=== PATIENT | female | born 1945 | race Caucasian/White ===

== ENCOUNTER → 2016-12-08 | Outpatient (REF) | payer MEDICARE, OTHER ==
[2016-12-08 17:59] LABS: ALBUMIN 3.6 GM/DL (3.2-5.2); ALBUMIN/GLOBULIN RATIO 1.16 (1.00-1.93); ALKALINE PHOSPHATASE 92 U/L (45-117); ALT/SGPT 183 U/L (12-78); ANION GAP 10 MEQ/L (8-16); AST/SGOT 123 U/L (15-37); BILIRUBIN,TOTAL 0.9 MG/DL (0.2-1.0); BLOOD UREA NITROGEN 20 MG/DL (7-18); CALCIUM LEVEL 9.1 MG/DL (8.8-10.2); CARBON DIOXIDE LEVEL 27 MEQ/L (21-32); CHLORIDE LEVEL 107 MEQ/L (98-107); CHOLESTEROL LEVEL 224 MG/DL (<200); CREATININE FOR GFR 0.95 MG/DL (0.55-1.02); GLOMERULAR FILTRATION RATE > 60.0 (>39); GLUCOSE, FASTING 112 MG/DL (83-110); POTASSIUM SERUM 3.5 MEQ/L (3.5-5.1); SODIUM LEVEL 144 MEQ/L (136-145); TOTAL PROTEIN 6.7 GM/DL (6.4-8.2); TRIGLYCERIDES LEVEL 89 MG/DL (<150)
== END ==
LOC: M SFHCCLAY 10:34
PROVIDERS: ATTEND Family Medicine
DX: R73.01 Impaired fasting glucose (principal); Z13.220 Encounter for screening for lipoid disorders; K21.9 Gastro-esophageal reflux disease without esophagitis; J30.9 Allergic rhinitis, unspecified; M19.90 Unspecified osteoarthritis, unspecified site; M70.62 Trochanteric bursitis, left hip; M70.61 Trochanteric bursitis, right hip; Z79.82 Long term (current) use of aspirin; Z79.899 Other long term (current) drug therapy
CPT/HCPCS: 80053; 80061; 83036; G0463

== ENCOUNTER → 2017-08-04 | Outpatient (REF) | payer MEDICARE, OTHER | LOC: M LAB REF 15:29 | DX: L08.9 Local infection of the skin and subcutaneous tissue, unspecified (principal) | CPT/HCPCS: 87070 ==

== ENCOUNTER → 2018-03-18 | Outpatient (REF) | payer MEDICARE, OTHER ==
[2018-03-18 18:44] LABS: BASO # 0.1 10^3/uL (0.0-0.2); BASO % 0.9 % (0.0-1.0); EOS # 0.3 10^3/uL (0.0-0.50); EOS % 5.2 % (0.0-3.0); HEMOGLOBIN 13.4 g/dl (12.0-15.5); IMMATURE GRANULOCYTE % 0.2 % (0-3.0); LYMPH # 1.3 10^3/uL (1.5-4.5); LYMPH % 22.2 % (24.0-44.0); MEAN CORPUSCULAR HEMOGLOBIN 29.5 pg (27.0-33.0); MEAN CORPUSCULAR HGB CONC 32.7 g/dl (32.0-36.5); MEAN CORPUSCULAR VOLUME 90.1 fl (80.0-96.0); MONO # 0.5 10^3/uL (0.0-0.8); MONO % 9.6 % (0.0-5.0); NEUTROPHILS # 3.5 10^3/uL (1.8-7.7); NEUTROPHILS % 61.9 % (36.0-66.0); RED BLOOD COUNT 4.55 10^6/uL (4.00-5.40); RED CELL DISTRIBUTION WIDTH 12.8 % (11.5-14.5); WHITE BLOOD COUNT 5.6 10^3/uL (4.0-10.0)
[2018-03-18 18:48] LABS: ALBUMIN 3.5 GM/DL (3.2-5.2); ALBUMIN/GLOBULIN RATIO 1.13 (1.00-1.93); ALKALINE PHOSPHATASE 79 U/L (45-117); ALT/SGPT 41 U/L (12-78); ANION GAP 7 MEQ/L (8-16); AST/SGOT 33 U/L (7-37); BILIRUBIN,TOTAL 1.1 MG/DL (0.2-1.0); BLOOD UREA NITROGEN 16 MG/DL (7-18); C REACTIVE PROTEIN QUANTITATIV < 0.30 MG/DL (0.00-0.30); CARBON DIOXIDE LEVEL 32 MEQ/L (21-32); CHLORIDE LEVEL 105 MEQ/L (98-107); GLOMERULAR FILTRATION RATE 57.7 (>39); GLUCOSE, FASTING 100 MG/DL (70-100); POTASSIUM SERUM 3.7 MEQ/L (3.5-5.1); RHEUMATOID FACTOR QUANT < 10.0 IU/ML (<15.0); SODIUM LEVEL 144 MEQ/L (136-145); TOTAL PROTEIN 6.6 GM/DL (6.4-8.2)
[2018-03-18 19:21] LABS: POS COUNT POS FLAG
[2018-03-18 19:38] LABS: ERYTHROCYTE SEDIMENTATION RATE 19 mm/hr (0-30)
[2018-03-22 00:30] LABS: SSA SJOGRENS A <0.2 AI (0.0-0.9); SSB SJOGRENS B <0.2 AI (0.0-0.9)
[2018-03-22 00:30] LABS: CYCLIC CITRULLINATED PEPTIDE 6 units (0-19)
== END ==
LOC: M SFHCCLAY 10:58
DX: R68.2 Dry mouth, unspecified (principal); R63.4 Abnormal weight loss
CPT/HCPCS: 84443

== ENCOUNTER → 2018-07-14 | Outpatient (CLI) | payer MEDICARE, OTHER ==
--- NOTE | 2018-07-14 10:23 | REP ---
NUCLEAR GASTRIC EMPTYING SCAN: Following the oral administration of 1.03 mCi technetium 99m sulfur colloid in two scrambled eggs and 2 ounces of water, multiple images of the upper abdomen are performed in the anterior and posterior projections for 90 minutes. At the end of 90 minutes, 25% of the ingested activity has emptied from the stomach. T1/2 is calculated to be 163 minutes. A normal t1/2 is 90 minutes. Therefore, there is delayed gastric emptying. IMPRESSION: Mild to moderately delayed gastric emptying. Electronically Signed by Olayinka Sandhu MD 07/14/2018 11:45 A
== END ==
LOC: M RAD 07:24
PROVIDERS: ATTEND Surgery
DX: K44.9 Diaphragmatic hernia without obstruction or gangrene (principal); K31.84 Gastroparesis; K21.9 Gastro-esophageal reflux disease without esophagitis
CPT/HCPCS: 78264; A9541

== ENCOUNTER → 2018-07-21 | Outpatient (REF) | payer MEDICARE, OTHER ==
[2018-07-21 17:15] LABS: ALBUMIN 3.8 GM/DL (3.2-5.2); ALT/SGPT 29 U/L (12-78); BILIRUBIN,TOTAL 0.6 MG/DL (0.2-1.0); BLOOD UREA NITROGEN 26 MG/DL (7-18); CARBON DIOXIDE LEVEL 31 MEQ/L (21-32); CHLORIDE LEVEL 107 MEQ/L (98-107); CHOLESTEROL LEVEL 210 MG/DL (<200); CHOLESTEROL RISK RATIO 4.038 (<5); CREATININE FOR GFR 0.87 MG/DL (0.55-1.30); GLOMERULAR FILTRATION RATE > 60.0 (>39); GLUCOSE, FASTING 104 MG/DL (70-100); HDL CHOLESTEROL 52 MG/DL (>40); LDL CHOLESTEROL 138 MG/DL (<100); NON-HDL-C 158 MG/DL; POTASSIUM SERUM 3.7 MEQ/L (3.5-5.1); SODIUM LEVEL 143 MEQ/L (136-145); TOTAL PROTEIN 6.6 GM/DL (6.4-8.2); TRIGLYCERIDES LEVEL 100 MG/DL (<150)
[2018-07-21 17:22] LABS: BASO # 0.1 10^3/uL (0.0-0.2); BASO % 0.8 % (0.0-1.0); EOS # 0.2 10^3/uL (0.0-0.50); EOS % 2.9 % (0.0-3.0); LYMPH # 1.8 10^3/uL (1.5-4.5); LYMPH % 27.8 % (24.0-44.0); MEAN CORPUSCULAR HEMOGLOBIN 29.7 pg (27.0-33.0); MEAN CORPUSCULAR HGB CONC 32.5 g/dl (32.0-36.5); MEAN CORPUSCULAR VOLUME 91.5 fl (80.0-96.0); MONO # 0.5 10^3/uL (0.0-0.8); MONO % 8.3 % (0.0-5.0); NEUTROPHILS # 3.9 10^3/uL (1.8-7.7); NEUTROPHILS % 59.7 % (36.0-66.0); RED BLOOD COUNT 4.37 10^6/uL (4.00-5.40); WHITE BLOOD COUNT 6.5 10^3/uL (4.0-10.0)
[2018-07-21 18:20] LABS: PLATELET COUNT, AUTOMATED 74 10^3/uL (150-450)
[2018-07-21 18:22] LABS: HEMOGLOBIN A1c 5.8 %
== END ==
LOC: M SFHCCLAY 08:55
PROVIDERS: ATTEND Family Medicine
DX: Z01.818 Encounter for other preprocedural examination (principal); R73.01 Impaired fasting glucose; Z86.2 Personal history of diseases of the blood and blood-forming organs and certain disorders involving the immune mechanism; Z13.220 Encounter for screening for lipoid disorders
CPT/HCPCS: 80053; 80061; 83036; 85025; 85049; 85055; G0463

== ENCOUNTER → 2018-08-03 | Outpatient (REF) | payer MEDICARE, OTHER ==
[2018-08-05 14:43] LABS: ANTINUCLEAR ANTIBODIES DIRECT Negative (Negative)
== END ==
LOC: M LABDRAWC 17:24
PROVIDERS: ATTEND Nurse Practitioner Family
DX: R53.83 Other fatigue (principal); L65.8 Other specified nonscarring hair loss

== ENCOUNTER → 2018-08-24 | Outpatient (REF) | payer MEDICARE, OTHER ==
[~2018-08-24] MED LIST: ASPI81CH33 PO; CALC600T66 PO; INDA125TA PO; MYRB50TA PO; OMEP40CA2 PO; PANT40TA3 PO; POTA10808 PO; SENN8.6T98 PO; VITAD1000T PO; [UNRECOGNIZED DRUG - CODE] PO; [UNRECOGNIZED DRUG - OTHER] PO
[2018-08-24 17:21] LABS: BASO # 0.1 10^3/uL (0.0-0.2); BASO % 0.7 % (0.0-1.0); EOS # 0.2 10^3/uL (0.0-0.50); EOS % 2.7 % (0.0-3.0); HEMATOCRIT 39.6 % (36.0-47.0); HEMOGLOBIN 13.3 g/dl (12.0-15.5); LYMPH # 1.6 10^3/uL (1.5-4.5); LYMPH % 23.6 % (24.0-44.0); MEAN CORPUSCULAR HEMOGLOBIN 30.4 pg (27.0-33.0); MEAN CORPUSCULAR HGB CONC 33.6 g/dl (32.0-36.5); MEAN CORPUSCULAR VOLUME 90.4 fl (80.0-96.0); MONO # 0.7 10^3/uL (0.0-0.8); MONO % 9.9 % (0.0-5.0); NEUTROPHILS # 4.3 10^3/uL (1.8-7.7); NEUTROPHILS % 62.8 % (36.0-66.0); RED BLOOD COUNT 4.38 10^6/uL (4.00-5.40); WHITE BLOOD COUNT 6.8 10^3/uL (4.0-10.0)
[2018-08-24 17:54] LABS: PLATELET COUNT, AUTOMATED 87 10^3/uL (150-450)
== END ==
LOC: M SFHCCLAY 11:12
PROVIDERS: ATTEND Family Medicine
DX: D69.6 Thrombocytopenia, unspecified (principal)

== ENCOUNTER 2018-08-31 11:59 | Day surgery (SDC) | payer MEDICARE, OTHER ==
[~2018-08-31] VITALS: Ht 167.6 cm; Wt 67.6 kg
[2018-08-31] MEDS: NS 1,000 ML IV ONE (09:30)
[2018-08-31] MEDS ORDERED: PROPOFOL 200 MG/20 ML VIAL As Ordered ONE (13:08)
[2018-08-31] MEDS ORDERED: LIDOCAINE 2% INJ 100 MG/5 ML SDV (FOR ANES.) As Ordered ONE (13:08)
--- NOTE | 2018-08-31 13:21 | ROOR ---
Patient Name: Sarah Patricio Procedure Date: 08/31/2018 12:59 PM Date of : 1945 Age: 73 Room: [facility] Gender: Female Note Status: Finalized Procedure: Upper GI endoscopy Indications: Epigastric abdominal pain, Abnormal UGI series Providers: Hood Hazel MD Referring MD: AVINASH LEE DO Requesting Provider: Medicines: Monitored Anesthesia Care Complications: No immediate complications. Procedure: Pre-Anesthesia Assessment: - The heart rate, respiratory rate, oxygen saturations, blood pressure, adequacy of pulmonary ventilation, and response to care were monitored throughout the procedure. The Endoscope was introduced through the mouth, and advanced to the second part of duodenum. The upper GI endoscopy was accomplished without difficulty. The patient tolerated the procedure well. Findings: The Z-line was regular and was found 39 cm from the incisors. A small paraesophageal hernia was found. The exam was otherwise without abnormality. The exam of the duodenum was otherwise normal. Impression: - Z-line regular, 39 cm from the incisors. - Small paraesophageal hernia. - The examination was otherwise normal. - No specimens collected. - The examination was otherwise normal. Recommendation: - Patient has a contact number available for emergencies. The signs and symptoms of potential delayed complications were discussed with the patient. Return to normal activities tomorrow. Written discharge instructions were provided to the patient. - Discharge patient to home. - Follow an antireflux regimen. - Continue present medications. - Return to referring physician. - The findings and recommendations were discussed with the patient's family. Hood Hazel MD Hood Hazel MD 08/31/2018 1:20:44 PM Electronically signed by Hood Hazel MD Number of Addenda: 0 Note Initiated On: 08/31/2018 12:59 PM Estimated Blood Loss: Estimated blood loss: none.
[2018-08-31 13:30] VITALS: BP 159/63
== END 2018-08-31 13:42 | disposition home or self-care (01) ==
LOC: M OPP 11:59
PROVIDERS: ATTEND Internal Medicine Gastroenterology
DX: R10.13 Epigastric pain (principal); R93.3 Abnormal findings on diagnostic imaging of other parts of digestive tract; K44.9 Diaphragmatic hernia without obstruction or gangrene

== ENCOUNTER → 2018-12-22 | Outpatient (REF) | payer MEDICARE, OTHER ==
[~2018-12-22] MED LIST changes: +CHOL100029 PO; -OMEP40CA2 PO; +OMEP40CA97 PO; -VITAD1000T PO
[2018-12-23 11:53] LABS: THYROID STIMULATING HORMONE 2.55 uIU/ML (0.358-3.740); THYROXINE (T4) 7.9 UG/DL (4.5-12.0)
[2018-12-23 12:17] LABS: TOTAL T3 82.1 NG/DL (60.0-181.0)
== END ==
LOC: M SFHCCLAY 14:23
PROVIDERS: ATTEND Family Medicine
DX: R73.01 Impaired fasting glucose (principal); Z13.29 Encounter for screening for other suspected endocrine disorder; Z79.899 Other long term (current) drug therapy

== ENCOUNTER → 2019-03-13 | Outpatient (CLI) | payer MEDICARE, OTHER ==
--- NOTE | 2019-03-13 14:43 | REP ---
Clinical: Cough . Comparison: None . Technique: PA and lateral. Findings: The mediastinum and cardiac silhouette are normal. The lung shi are clear and without acute consolidation, effusion, or pneumothorax. The skeletal structures are intact and normal. Impression: 1. No acute cardiopulmonary process. Electronically Signed by Matt España MD 03/13/2019 02:34 P
== END ==
LOC: M CLY 14:17
PROVIDERS: ATTEND Family Medicine
DX: R05 Cough (principal)

== ENCOUNTER → 2021-04-17 | Outpatient (REF) | payer MEDICARE, OTHER ==
[~2021-04-17] MED LIST changes: +MULT1TAB77 PO; +OMEP40CA4 PO; -OMEP40CA97 PO; +PANT40TA29 PO; -PANT40TA3 PO; -[UNRECOGNIZED DRUG - OTHER] PO
[2021-04-17 16:10] LABS: BASO # 0.1 10^3/uL (0.0-0.2); BASO % 0.9 % (0.0-1.0); EOS # 0.2 10^3/uL (0.0-0.5); EOS % 3.3 % (0.0-3.0); HEMATOCRIT 39.8 % (36.0-47.0); HEMOGLOBIN 13.2 g/dl (12.0-15.5); LYMPH # 1.4 10^3/uL (1.5-5.0); LYMPH % 23.9 % (24.0-44.0); MEAN CORPUSCULAR HEMOGLOBIN 30.5 pg (27.0-33.0); MEAN CORPUSCULAR HGB CONC 33.2 g/dl (32.0-36.5); MEAN CORPUSCULAR VOLUME 91.9 fl (80.0-96.0); MONO # 0.7 10^3/uL (0.0-0.8); MONO % 12.1 % (2.0-8.0); NEUTROPHILS # 3.4 10^3/uL (1.5-8.5); NEUTROPHILS % 59.4 % (36.0-66.0); PLATELET COUNT, AUTOMATED 105 10^3/uL (150-450); RED BLOOD COUNT 4.33 10^6/uL (4.00-5.40); WHITE BLOOD COUNT 5.7 10^3/uL (4.0-10.0)
[2021-04-17 16:22] LABS: HEMOGLOBIN A1c 5.6 %
[2021-04-17 16:42] LABS: ALBUMIN 3.8 GM/DL (3.2-5.2); ALT/SGPT 29 U/L (12-78); BILIRUBIN,TOTAL 0.6 MG/DL (0.2-1.0); BLOOD UREA NITROGEN 22 MG/DL (7-18); CALCIUM LEVEL 9.3 MG/DL (8.8-10.2); CARBON DIOXIDE LEVEL 31 MEQ/L (21-32); CHLORIDE LEVEL 107 MEQ/L (98-107); CREATININE FOR GFR 0.95 MG/DL (0.55-1.30); FREE T4 0.88 NG/DL (0.76-1.46); GLOMERULAR FILTRATION RATE > 60.0 (>39); GLUCOSE, FASTING 109 MG/DL (70-100); POTASSIUM SERUM 4.1 MEQ/L (3.5-5.1); SODIUM LEVEL 143 MEQ/L (136-145); TOTAL PROTEIN 6.6 GM/DL (6.4-8.2)
[2021-04-17 17:29] LABS: TOTAL T3 67.9 NG/DL (60.0-181.0)
== END ==
LOC: M SFHCCLAY 11:42
PROVIDERS: ATTEND Family Medicine
DX: D69.6 Thrombocytopenia, unspecified (principal); R73.01 Impaired fasting glucose; R79.89 Other specified abnormal findings of blood chemistry; Z79.899 Other long term (current) drug therapy
CPT/HCPCS: 80053; 83036; 84439; 84443; 84480; 85025; G0463

== ENCOUNTER → 2021-11-12 | Outpatient (REF) | payer MEDICARE, OTHER ==
[~2021-11-12] MED LIST changes: -MULT1TAB77 PO; +MULTTAB14 PO
[2021-11-12 17:51] LABS: HEMOGLOBIN A1c 5.7 %
[2021-11-12 17:57] LABS: ALBUMIN 3.7 GM/DL (3.2-5.2); ALT/SGPT 34 U/L (12-78); BILIRUBIN,TOTAL 0.8 MG/DL (0.2-1.0); BLOOD UREA NITROGEN 15 MG/DL (7-18); CALCIUM LEVEL 9.2 MG/DL (8.8-10.2); CARBON DIOXIDE LEVEL 32 MEQ/L (21-32); CHLORIDE LEVEL 106 MEQ/L (98-107); CHOLESTEROL LEVEL 230 MG/DL (<200); CHOLESTEROL RISK RATIO 4.181 (<5); CREATININE FOR GFR 0.86 MG/DL (0.55-1.30); FREE T4 0.89 NG/DL (0.76-1.46); GLOMERULAR FILTRATION RATE > 60.0 (>39); GLUCOSE, FASTING 106 MG/DL (70-100); HDL CHOLESTEROL 55 MG/DL (>40); LDL CHOLESTEROL 147 MG/DL (<100); MAGNESIUM LEVEL 2.1 MG/DL (1.8-2.4); NON-HDL-C 175 MG/DL; POTASSIUM SERUM 4.1 MEQ/L (3.5-5.1); SODIUM LEVEL 143 MEQ/L (136-145); TOTAL PROTEIN 6.4 GM/DL (6.4-8.2); TRIGLYCERIDES LEVEL 139 MG/DL (<150)
== END ==
LOC: M SFHCCLAY 14:37
PROVIDERS: ATTEND Family Medicine
DX: R79.89 Other specified abnormal findings of blood chemistry (principal); R73.01 Impaired fasting glucose; R25.2 Cramp and spasm; E78.2 Mixed hyperlipidemia

== ENCOUNTER → 2022-01-09 | Outpatient (REF) | payer MEDICARE, OTHER ==
[~2022-01-09] MED LIST changes: +INDA1.253 PO; -INDA125TA PO
== END ==
LOC: M SFHCCLAY 13:56
PROVIDERS: ATTEND Physician Assistant
DX: R30.0 Dysuria (principal); Z53.9 Procedure and treatment not carried out, unspecified reason

== ENCOUNTER → 2022-04-22 | Outpatient (REF) | payer MEDICARE, OTHER ==
[~2022-04-22] MED LIST changes: +[UNRECOGNIZED DRUG - CODE] PO; -[UNRECOGNIZED DRUG - CODE] PO
[2022-04-22 18:02] LABS: BASO % 0.5 % (0.0-1.0); EOS # 0.2 10^3/uL (0.0-0.5); EOS % 2.3 % (0.0-3.0); FREE T4 1.08 NG/DL (0.89-1.76); HEMATOCRIT 39.9 % (36.0-47.0); HEMOGLOBIN 12.5 g/dl (12.0-15.5); LYMPH % 23.3 % (24.0-44.0); MEAN CORPUSCULAR HEMOGLOBIN 29.5 pg (27.0-33.0); MEAN CORPUSCULAR HGB CONC 31.3 g/dl (32.0-36.5); MEAN CORPUSCULAR VOLUME 94.1 fl (80.0-96.0); MONO # 0.6 10^3/uL (0.0-0.8); MONO % 6.9 % (2.0-8.0); NEUTROPHILS # 5.6 10^3/uL (1.5-8.5); NEUTROPHILS % 66.6 % (36.0-66.0); PLATELET COUNT, AUTOMATED 110 10^3/uL (150-450); RED BLOOD COUNT 4.24 10^6/uL (4.00-5.40); WHITE BLOOD COUNT 8.4 10^3/uL (4.0-10.0)
[2022-04-22 18:03] LABS: IRON (FE) 124 UG/DL (50-170); THYROID STIMULATING HORMONE 4.311 uIU/ML (0.55-4.78); TOTAL T3 78.2 NG/DL (60.0-181.0)
[2022-04-22 18:04] LABS: ALBUMIN 3.6 G/DL (3.2-5.2); ALKALINE PHOSPHATASE 72 U/L (46-116); ALT/SGPT 26 U/L (7.0-40); AST/SGOT 24 U/L (<34); BILIRUBIN,TOTAL 0.9 MG/DL (0.3-1.2); BLOOD UREA NITROGEN 21 MG/DL (9-23); CALCIUM LEVEL 9.3 MG/DL (8.3-10.6); CARBON DIOXIDE LEVEL 31 MMOL/L (20-31); CHLORIDE LEVEL 103 MMOL/L (98-107); CREATININE FOR GFR 0.89 MG/DL (0.55-1.30); GLOMERULAR FILTRATION RATE > 60.0 (>39); GLUCOSE, FASTING 118 MG/DL (74-106); POTASSIUM SERUM 3.9 MMOL/L (3.5-5.1); SODIUM LEVEL 141 MMOL/L (136-145); TOTAL PROTEIN 6.2 G/DL (5.7-8.2)
[2022-04-22 18:35] LABS: HEMOGLOBIN A1c 5.4 % (4.0-6.0)
== END ==
LOC: M SFHCCLAY 14:45
PROVIDERS: ATTEND Family Medicine
DX: D69.6 Thrombocytopenia, unspecified (principal); R25.2 Cramp and spasm; R73.01 Impaired fasting glucose; R79.89 Other specified abnormal findings of blood chemistry

== ENCOUNTER → 2023-03-04 | Outpatient (REF) | payer MEDICARE, OTHER ==
[2023-03-04 18:20] LABS: HEMATOCRIT 37.8 % (36.0-47.0); HEMOGLOBIN 12.2 g/dl (12.0-15.5); MEAN CORPUSCULAR HEMOGLOBIN 30.9 pg (27.0-33.0); MEAN CORPUSCULAR HGB CONC 32.3 g/dl (32.0-36.5); MEAN CORPUSCULAR VOLUME 95.7 fl (80.0-96.0); RED BLOOD COUNT 3.95 10^6/uL (4.00-5.40); WHITE BLOOD COUNT 6.5 10^3/uL (4.0-10.0)
[2023-03-04 18:41] LABS: ALBUMIN 3.7 G/DL (3.2-5.2); ALKALINE PHOSPHATASE 69 U/L (46-116); ALT/SGPT 43 U/L (7.0-40); AST/SGOT 37 U/L (<34); BILIRUBIN,TOTAL 0.9 MG/DL (0.3-1.2); BLOOD UREA NITROGEN 24 MG/DL (9-23); CALCIUM LEVEL 9.2 MG/DL (8.3-10.6); CARBON DIOXIDE LEVEL 30 MMOL/L (20-31); CHLORIDE LEVEL 107 MMOL/L (98-107); CHOLESTEROL LEVEL 142 MG/DL (<200); CHOLESTEROL RISK RATIO 2.61 (<5); CREATININE FOR GFR 0.85 MG/DL (0.55-1.30); GLOMERULAR FILTRATION RATE > 60.0 (>39); GLUCOSE, FASTING 96 MG/DL (74-106); HDL CHOLESTEROL 54.4 MG/DL (>40); LDL CHOLESTEROL 68.2 MG/DL (<100); MAGNESIUM LEVEL 2.1 MG/DL (1.8-2.4); NON-HDL-C 87.6 MG/DL; POTASSIUM SERUM 4.3 MMOL/L (3.5-5.1); SODIUM LEVEL 145 MMOL/L (136-145); TOTAL PROTEIN 6.3 G/DL (5.7-8.2); TRIGLYCERIDES LEVEL 97 MG/DL (<150)
[2023-03-04 19:10] LABS: PLATELET COUNT, AUTOMATED 99 10^3/uL (150-450)
== END ==
LOC: M LABDRAWC 17:34
PROVIDERS: ATTEND Physician Assistant
DX: I25.10 Atherosclerotic heart disease of native coronary artery without angina pectoris (principal); I50.22 Chronic systolic (congestive) heart failure; E78.00 Pure hypercholesterolemia, unspecified; I49.3 Ventricular premature depolarization

== ENCOUNTER 2023-09-06 10:36 | Day surgery (SDC) | payer MEDICARE, OTHER ==
[~2023-09-06] VITALS: Ht 167.6 cm; Wt 58.0 kg
[~2023-09-06 10:36] MED LIST changes: +ATOR40TA75 PO; +CALC600T60 PO; +CETI-24 PO; +CLOP75TA2 PO; +LR 1,000 ML IV SCH; +MAGN400C PO; +MIDAZOLAM INJ 2MG/2ML VIAL As Ordered ONE; +SENN-111 PO; +fentaNYL 100 MCG/2 ML INJECTION As Ordered ONE
[2023-09-06] MEDS: FLURBIPROFEN 0.03% OPHTH SOLN 2.5 ML OD SCH (12:34)
[2023-09-06] MEDS: ATROPINE SULFATE 1% OPHTH SOLN 2ML BTL OD SCH (12:34)
[2023-09-06] MEDS: PHENYLEPHRINE 2.5% OPHTH SOL 2ML OD SCH (12:34)
[2023-09-06] MEDS: TETRACAINE 0.5% OPHTH SOLN 4ML OD SCH (12:35)
[2023-09-06] MEDS: LIDOCAINE 1% SDV 5ML VIAL As Ordered ONE (13:32)
[2023-09-06] MEDS: MOXIFLOXACIN 0.6MG/0.4ML INTRAOCULAR SYRINGE As Ordered ONE (13:36)
[2023-09-06 13:50] VITALS: BP 127/60; TEMP 97.1; O2SAT 97
== END 2023-09-06 14:10 | disposition home or self-care (01) ==
LOC: M SDC 10:36
PROVIDERS: ATTEND Ophthalmology
DX: H25.11 Age-related nuclear cataract, right eye (principal); I25.2 Old myocardial infarction; K21.9 Gastro-esophageal reflux disease without esophagitis; Z79.02 Long term (current) use of antithrombotics/antiplatelets; Z88.5 Allergy status to narcotic agent; Z88.0 Allergy status to penicillin
CPT/HCPCS: 66984; J2250; J3010; V2632

== ENCOUNTER 2023-11-01 07:30 | Day surgery (SDC) | payer MEDICARE, OTHER ==
[~2023-11-01] VITALS: Ht 167.6 cm; Wt 57.1 kg
[2023-11-01] MEDS: LIDOCAINE 1% SDV 5ML VIAL As Ordered ONE (06:41)
[2023-11-01] MEDS: TETRACAINE 0.5% OPHTH SOLN 4ML OS SCH (08:38)
[2023-11-01] MEDS: FLURBIPROFEN 0.03% OPHTH SOLN 2.5 ML OS SCH (08:39)
[2023-11-01] MEDS: ATROPINE SULFATE 1% OPHTH SOLN 2ML BTL OS SCH (08:39)
[2023-11-01] MEDS: PHENYLEPHRINE 2.5% OPHTH SOL 2ML OS SCH (08:39)
[2023-11-01] MEDS: EMLA CREAM 5GM TUBE (LIDOCAINE/PRILOCAINE) TOP ONE (09:29)
[2023-11-01] MEDS: CEFUROXIME 1MG/0.1ML INTRACAMERAL INJ As Ordered ONE (10:21)
[2023-11-01 10:30] VITALS: BP 122/58; TEMP 97.3; O2SAT 95
== END 2023-11-01 10:50 | disposition home or self-care (01) ==
LOC: M SDC 07:30
PROVIDERS: ATTEND Ophthalmology
DX: H25.12 Age-related nuclear cataract, left eye (principal); I25.2 Old myocardial infarction; K21.9 Gastro-esophageal reflux disease without esophagitis; R32 Unspecified urinary incontinence; Z79.02 Long term (current) use of antithrombotics/antiplatelets; Z79.82 Long term (current) use of aspirin; Z79.899 Other long term (current) drug therapy; Z88.0 Allergy status to penicillin; Z88.5 Allergy status to narcotic agent
CPT/HCPCS: 66984; J0697; J2250; J3010; V2632

== ENCOUNTER → 2023-12-23 | Outpatient (REF) | payer MEDICARE, OTHER ==
[~2023-12-23] MED LIST changes: -LR 1,000 ML IV SCH; -MIDAZOLAM INJ 2MG/2ML VIAL As Ordered ONE; -fentaNYL 100 MCG/2 ML INJECTION As Ordered ONE
[2023-12-23 17:20] LABS: ALBUMIN 3.7 G/DL (3.2-5.2); BASO # 0.1 10^3/uL (0.0-0.2); BASO % 0.9 % (0.0-1.0); BILIRUBIN,TOTAL 0.8 MG/DL (0.3-1.2); CALCIUM LEVEL 9.9 MG/DL (8.3-10.6); CREATININE FOR GFR 0.96 MG/DL (0.55-1.30); EOS # 0.3 10^3/uL (0.0-0.5); EOS % 3.9 % (0.0-3.0); GLOMERULAR FILTRATION RATE 59.5 (>32); HEMATOCRIT 37.4 % (36.0-47.0); HEMOGLOBIN 12.2 g/dl (12.0-15.5); LYMPH # 1.9 10^3/uL (1.5-5.0); LYMPH % 24.8 % (24.0-44.0); MEAN CORPUSCULAR HEMOGLOBIN 31.6 pg (27.0-33.0); MEAN CORPUSCULAR HGB CONC 32.6 g/dl (32.0-36.5); MEAN CORPUSCULAR VOLUME 96.9 fl (80.0-96.0); MONO # 0.7 10^3/uL (0.0-0.8); MONO % 9.5 % (2.0-8.0); NEUTROPHILS # 4.6 10^3/uL (1.5-8.5); NEUTROPHILS % 60.6 % (36.0-66.0); POTASSIUM SERUM 4.4 MMOL/L (3.5-5.1); RED BLOOD COUNT 3.86 10^6/uL (4.00-5.40); TOTAL PROTEIN 6.3 G/DL (5.7-8.2); WHITE BLOOD COUNT 7.6 10^3/uL (4.0-10.0)
[2023-12-23 17:25] LABS: THYROID STIMULATING HORMONE 3.361 uIU/ML (0.55-4.78)
[2023-12-23 17:36] LABS: PLATELET COUNT, AUTOMATED 81 10^3/uL (150-450)
== END ==
LOC: M SFHCCLAY 14:43
PROVIDERS: ATTEND Family Medicine
DX: D69.6 Thrombocytopenia, unspecified (principal); R73.01 Impaired fasting glucose; R79.89 Other specified abnormal findings of blood chemistry; Z79.899 Other long term (current) drug therapy

== ENCOUNTER → 2024-03-28 | Outpatient (CLI) | payer MEDICARE, OTHER ==
[~2024-03-28] MED LIST changes: +POTA10807 PO; -POTA10808 PO; -SENN-111 PO; +SENN-165 PO
== END ==
LOC: M EKG 14:34
PROVIDERS: ATTEND Physician Assistant
DX: I49.5 Sick sinus syndrome (principal)